=== PATIENT | female | born 1975 | race Caucasian/White ===

== ENCOUNTER 2017-02-10 13:29 | Emergency (ER) | payer MEDICAID ==
[~2017-02-10] VITALS: Ht 154.9 cm; Wt 62.0 kg
[~2017-02-10 13:29] MED LIST: DIPH50CA4; P20; RANI300C8
[2017-02-10] MEDS ORDERED: IBUPROFEN 600MG TABLET PO ONE (19:00)
[2017-02-10 19:06] VITALS: BP 136/79
== END 2017-02-10 20:49 | disposition home or self-care (01) ==
LOC: ER 17:28
DX: M25.562 Pain in left knee (principal); I10 Essential (primary) hypertension
CPT/HCPCS: 73562; 81025; 99284; L1830

== ENCOUNTER 2017-08-27 06:06 | Day surgery (SDC) | payer MEDICAID ==
[~2017-08-27] VITALS: Ht 154.9 cm; Wt 77.6 kg
[2017-08-27 07:03] LABS: UCG SCREEN NEGATIVE
[2017-08-27] MEDS ORDERED: LACTATED RINGERS 1,000 ML IV SCH (07:50)
[2017-08-27] MEDS ORDERED: BUPIVACAINE HCL/EPINEPHRINE/PF 0.5%/0.0005 10ML ONE (08:03)
[2017-08-27] MEDS ORDERED: MORPHINE SULFATE/PF 1MG/ML 10ML AMP ONE (09:19)
[2017-08-27] MEDS ORDERED: RANI150C12 PO (09:40)
[2017-08-27] MEDS ORDERED: LISI-648 PO (09:40)
[2017-08-27] MEDS ORDERED: METOCLOPRAMIDE HCL 10MG/2ML VIAL ONE ×2 (09:48→09:49)
[2017-08-27] MEDS ORDERED: SODIUM CHLORIDE 0.9% 1,000 ML IV ONE (10:53)
[2017-08-27] MEDS ORDERED: HYDROMORPHONE HCL/PF 2MG/ML CPJ IV PRN (11:00)
[2017-08-27] MEDS ORDERED: ONDANSETRON HCL 4MG/2ML VIAL IV PRN (11:00)
[2017-08-27] MEDS ORDERED: MEPERIDINE HCL/PF 25MG/ML CPJ IV PRN (11:00)
[2017-08-27] MEDS ORDERED: HYDROCODONE/ACETAMINOPHEN 10/325MG TABLET PO PRN (11:30)
[2017-08-27 12:08] VITALS: BP 140/80
== END 2017-08-27 15:20 | disposition home or self-care (01) ==
LOC: OR 06:06
PROVIDERS: ATTEND Orthopaedic Surgery
DX: M23.222 Derangement of posterior horn of medial meniscus due to old tear or injury, left knee (principal); M94.262 Chondromalacia, left knee; I10 Essential (primary) hypertension; K29.70 Gastritis, unspecified, without bleeding; E05.80 Other thyrotoxicosis without thyrotoxic crisis or storm; K21.9 Gastro-esophageal reflux disease without esophagitis; R42 Dizziness and giddiness; Z79.899 Other long term (current) drug therapy; Z98.890 Other specified postprocedural states
CPT/HCPCS: 29881; 81025; 88304; 88311; 97116; 97161; J0171; J1170; J2405; J2765; J7120; L1830; J2274